=== PATIENT | male | born 1960 | race Caucasian/White ===

== ENCOUNTER 2023-05-17 11:00 | Outpatient (RCR) | payer OTHER, SELFPAY | END 2023-05-17 12:35 | disposition home or self-care (01) | PROVIDERS: PCP Family Medicine; Visit Provider Orthopaedic Surgery | DX: Z98.890 Other specified postprocedural states (principal); Z51.89 Encounter for other specified aftercare | CPT/HCPCS: 97110; 97165; 97530; X5282 ==